=== PATIENT | male | born 1945 | race Caucasian/White ===

== ENCOUNTER → 2021-03-11 | Outpatient (CLI) | payer MEDICARE ==
[~2021-03-11] MED LIST: ANDROGEL5 GM TOP; ASPIR 8181 MG PO; CIPRO500 MG PO; DIGOXIN125 MCG PO; METOPROLOL SUCC25 MG PO; METRONIDAZOLE500 MG PO; XARELTO20 MG PO
== END ==
LOC: US 07:22
PROVIDERS: ATTEND Internal Medicine
DX: N50.89 Other specified disorders of the male genital organs (principal)
CPT/HCPCS: 76870; 93976

== ENCOUNTER → 2022-02-05 | Outpatient (CLI) | payer MEDICARE | LOC: US 07:29 | PROVIDERS: ATTEND Internal Medicine | DX: R19.01 Right upper quadrant abdominal swelling, mass and lump (principal) | CPT/HCPCS: 76700 ==